=== PATIENT | female | born 1980 | race Two or more races ===

== ENCOUNTER 2024-04-25 12:23 | Emergency (ER) | payer SELFPAY ==
[~2024-04-25] VITALS: Ht 160 cm; Wt 70.5 kg
[2024-04-25 12:37] VITALS: BP 145/82; PULSE 61; RESP 16; TEMP 98.4
[2024-04-25] MEDS: PERTUSS(ACELL),DIPH,TET/PF 0.5 ML SYRINGE [ADULT] IM. ONE (13:19)
[2024-04-25] MEDS ORDERED: IBUP-1492 PO (14:32)
[2024-04-25] MEDS: BACITRACIN 0.9 GM PACKET OINTMENT TP ONE (14:39)
== END 2024-04-25 15:16 | disposition home or self-care (01) ==
LOC: EMS 12:28
DX: S51.811A Laceration without foreign body of right forearm, initial encounter (principal); X58.XXXA Exposure to other specified factors, initial encounter; Y93.89 Activity, other specified; Y92.89 Other specified places as the place of occurrence of the external cause; Y99.8 Other external cause status
CPT/HCPCS: 12001; 90471; 90715; 99283

== ENCOUNTER 2024-05-02 14:27 | Emergency (ER) | payer OTHER ==
[~2024-05-02] VITALS: Ht 157.5 cm; Wt 75.9 kg
[~2024-05-02 14:27] MED LIST: IBUP-1492 PO
[2024-05-02 14:31] VITALS: TEMP 98
[2024-05-02 16:11] VITALS: BP 122/73; PULSE 75; RESP 16
== END 2024-05-02 16:13 | disposition home or self-care (01) ==
LOC: EMS 14:28
DX: S51.811D Laceration without foreign body of right forearm, subsequent encounter (principal); X58.XXXD Exposure to other specified factors, subsequent encounter
CPT/HCPCS: 99281; Z7502